=== PATIENT | female | born 1960 | race Caucasian/White ===

== ENCOUNTER → 2024-10-19 | Outpatient (CLI) | payer MEDICAID, SELFPAY ==
--- NOTE | 2024-10-19 12:30 | XR_ITS ---
Examination: Breast ultrasound, unilateral, left complete Date and time of exam: October 19, 2024 1304 hours INDICATIONS: Mammogram August 01, 2024 extensive scar formation upper outer left breast interval focal asymmetry 12:00 position left breast, family history, mother, breast cancer Technique: Real-time martinez scale ultrasonographic imaging performed left breast including all 4 quadrants as well as nipple retroareolar and axillary region. Findings: 2:00 scarring No interval suspicious mass IMPRESSION: BI-RADS Category 3: Probably benign findings Recommend 1 additional 6 month left breast sonogram follow-up to document stability of scarring in the 2:00 position left breast
--- NOTE | 2024-10-19 13:00 | XR_ITS ---
Examination: Diagnostic digital mammography, unilateral, left Computer aided detection 3-D breast Tomosynthesis, unilateral Date and time of exam: October 19, 2024 1316 hours INDICATIONS: Mammogram August 01, 2024 focal asymmetry 12:00 position left breast Technique: Nonmagnified MLO, CC views of the left breast have been obtained, reconstructed from 3-D Tomosynthesis images. R2 computer aided detection program utilized for evaluation of suspicious masses and/or abnormal calcifications. 3-D Tomosynthesis images obtained. Findings: Scattered areas of fibroglandular density Extensive scar reformation stable upper left breast No interval suspicious masses Impression: BI-RADS category 2: Benign findings Yearly follow-up mammography recommended
== END | disposition home or self-care (01) ==
LOC: CDIM 12:42
PROVIDERS: PCP Family Medicine; Referring Provider Family Medicine; Visit Provider Family Medicine
DX: R92.322 Mammographic fibroglandular density, left breast (principal); R92.8 Other abnormal and inconclusive findings on diagnostic imaging of breast; Z80.3 Family history of malignant neoplasm of breast
CPT/HCPCS: 76641; 77061; 77065; G0279

== ENCOUNTER 2024-11-01 13:32 | Outpatient (RCR) | payer MEDICAID, SELFPAY | END 2024-11-23 23:59 | disposition home or self-care (01) | LOC: SCTC 13:32 | PROVIDERS: PCP Family Medicine; Referring Provider Family Medicine; Visit Provider Nurse Practitioner Family | DX: C50.412 Malignant neoplasm of upper-outer quadrant of left female breast (principal); Z17.0 Estrogen receptor positive status [ER+]; Z17.21 Progesterone receptor positive status; Z17.32 Human epidermal growth factor receptor 2 negative status; Z90.12 Acquired absence of left breast and nipple; Z80.3 Family history of malignant neoplasm of breast; M81.0 Age-related osteoporosis without current pathological fracture; Z79.810 Long term (current) use of selective estrogen receptor modulators (SERMs); J44.9 Chronic obstructive pulmonary disease, unspecified; I10 Essential (primary) hypertension | CPT/HCPCS: 99212; G0463 ==

== ENCOUNTER 2025-07-02 19:44 | Emergency (ER) | payer MEDICAID, SELFPAY ==
[2025-07-02 19:45] VITALS: BMI 29.2
--- NOTE | 2025-07-02 20:51 | PD.EDLOWEX ---
Lower Extremity Injury RME/HPI General Chief Complaint: Extremity Injury, Lower Stated Complaint: MARLENY LEG SWELLING X3 DAYS Time Seen by Provider: 07/02/25 20:50 Arrival date/time: 07/02/25 19:44 RME / HPI RME / HPI Narrative: See MDM for Dr. Amaya's HPI documentation. Related Data Home Medications ?Medication ?Instructions ?Recorded ?Confirmed albuterol sulfate 90 mcg/actuation 2 puff inhalation Q6H PRN Wheezing 04/11/20 04/11/20 aerosol inhaler lisinopril 20 1 tab PO BID 04/11/20 04/11/20 mg-hydrochlorothiazide 12.5 mg tablet tamsulosin 0.4 mg capsule 0.4 mg PO QDAY 04/11/20 04/11/20 Previous Rx's ?Medication ?Instructions ?Recorded ibuprofen 800 mg tablet 800 mg PO Q8H PRN pain #30 tabs 12/22/23 tizanidine 4 mg capsule 4 mg PO Q8H PRN muscle spasticity 12/22/23 #30 caps Allergies Allergy/AdvReac Type Severity Reaction Status Date / Time codeine Allergy Mild Gastrointestinal Verified 12/22/23 15:23 Upset morphine AdvReac Mild VOMITING Verified 12/22/23 15:23 AND CHILLS Review of Systems Review of Systems Systems Reviewed: All systems reviewed, normal except as documented Past Medical History Past Medical History NEUROLOGIC: Negative Neurological Disorders, Seizures or Amyotrophic Lateral Sclerosis (ALS/Sendy Gehrig's) CARDIAC: Positive Cardiac Disorders and Hypertension (TAKES MED); Negative Congestive Heart Failure, Edema, Cellulitis or Varicose Veins RESPIRATORY: Positive Chronic Obstructive Pulmonary Disease (COPD), Asthma and Bronchitis; Negative Pneumonia, Tuberculosis or Sleep Apnea GASTROINTESTINAL: Positive Gastrointestinal Disorders, Ulcer, Hemorrhoids and Obesity; Negative Hepatitis GENITOURINARY: Positive Genitourinary Disorders, Renal Disease (YAN 2017), Kidney Stones (NO PROC) and Benign Prostatic Hyperplasia REPRODUCTIVE: Positive Breast Cancer (LEFT FOR THIS PROC) and Previous Pregnancies (X3) MUSCULOSKELETAL: Positive Musculoskeletal Disorders, Arthritis and Scoliosis (MILD) ENDOCRINE: Negative Endocrine Disorders, Diabetes Mellitus Type 1 or Diabetes Mellitus Type 2 HEMATOLOGIC: Negative Blood Disorders or Sickle Cell Disease PSYCHO/SOCIAL: Positive Depression (NO MEDS) and Anxiety (NO MED) OTHER HISTORY: Positive Chicken Pox, Cancer and Breast Cancer (LEFT FOR THIS PROC); Negative Hospitalization, Autoimmune Disease, Shingles, Falls, Blood Transfusions, Anesthesia Reactions, Chemotherapy, Radiation Therapy, MRSA, Measles or Mumps Family History FAMILY HISTORY: Positive Family Psychiatric Problems (SISTER (DEPRESSION,ANXIETY_), Family Cardiac Disorders (MOTHER,BROTHER (HTN)), Family Gastrointestinal Problems (BROTHER (ULCER)) and Family Surgery (SISTER); Negative Family Respiratory Disorders, Family Cancer or Family Anesthesia Reaction Surgical History SURGICAL: Positive Hysterectomy (MARLENY) and Tubal Ligation; Negative Cardiac Surgery or Pacemaker Social History SMOKING STATUS: Current some day smoker SUBSTANCE USE: does not use ED Exam Narrative Physical exam: See [facility] for Dr. Amaya's physical exam documentation. Course Quality Measures none Extremity Injury, Lower [facility] Narrative [facility] Narrative:: This section includes all my notes and documentations, including HPI, PE, and ED course. Stevie Amaya MD HPI: ROS: All negative except as documented in HPI. Physical Exam: General: Alert and oriented. No acute distress when remaining still. Eyes: Conjunctivae and lids clear. ENT: No nasal congestion. Neck: Supple. Heart: RRR. Lungs: No respiratory distress. Good air movement. No rhonchi, wheezing, rales. Abdomen: Soft and nontender. Normal bowel sounds. No distension. No rebound or guarding. Back: No CVA tenderness. Skin: Warm and dry. Neuro: Alert and oriented X 3. I reviewed EMS and detention notes. I reviewed all diagnostic test results. My interpretation of the EKG is My interpretation of the chest x-ray is My review of the CT report is Blood tests and urine tests At this point, diagnoses include Treatment here included Significant improvement Not yet done: I discussed the case with our hospitalist. About the presentation and exam and diagnostics and treatments here. And need of further care in the hospital. Will accept the patient. Not yet done: Based on my best medical judgment, made decision no further evaluation or treatment indicated at this time. Patient understands and agrees to the discharge instructions customized and printed, see below. Stevie Amaya MD Patient data External records reviewed:: [facility] previous records (Per chart review, patient was seen here on 12/22/23 for muscle spasm of lower legs.) Clinical information provided by:: patient Social determinants that could affect healthcare access:: none Patient has the following chronic illnesses:: COPD, HTN Discharge Plan Prescriptions/Referrals Prescriptions/Med Rec: No Action lisinopril-hydrochlorothiazide 20-12.5 mg Tablet 1 tab PO BID tamsulosin 0.4 mg Capsule 0.4 mg PO QDAY albuterol sulfate 90 mcg/actuation Hfa Aerosol Inhaler 2 puff INHALATION Q6H PRN (Reason: Wheezing) tizanidine 4 mg capsule 4 mg PO Q8H PRN (Reason: muscle spasticity) Qty: 30 0RF ibuprofen 800 mg tablet 800 mg PO Q8H PRN (Reason: pain) Qty: 30 0RF Patient/Caregiver Discharge Instructions Print Language: Occitan
[2025-07-02 21:01] VITALS: BP 180/89; PULSE 88; RESP 18; TEMP 36.8; O2SAT 91
--- NOTE | 2025-07-02 21:02 | EDNOTE_ITS ---
ED SOB =RME/HPI General Chief Complaint: Extremity Injury, Lower Stated Complaint: MARLENY LEG SWELLING X3 DAYS Time Seen by Provider: 07/02/25 20:50 Arrival date/time: 07/02/25 19:44 RME / HPI RME / HPI Narrative: See MDM for Dr. Amaya's HPI documentation. Related Data Home Medications ?Medication ?Instructions ?Recorded ?Confirmed albuterol sulfate 90 mcg/actuation 2 puff inhalation Q 6H PRN Wheezing 04/11/20 04/11/20 aerosol inhaler lisinopril 20 1 tab PO BID 04/11/20 mg-hydrochlorothiazide 12.5 mg tablet tamsulosin 0.4 mg capsule 0.4 mg PO QDAY 04/11/2003/24 Previous Rx's ?Medication ?Instructions ?Recorded ibuprofen 800 mg tablet 800 mg PO Q8H PRN pain #30 t abs 12/22/23 tizanidine 4 mg capsule 4 mg PO Q8H PRN muscle spast icity 12/22/23 #30 caps clonidine HCl 0.1 mg tablet 0.1 mg PO BID #60 tabs 08/17 oseltamivir 75 mg capsule (Tamiflu) 75 mg PO BID 5 day s #10 caps 07/03/25 prednisone 50 mg tablet 50 mg PO BID 3 days #6 tabs 07/03/25 Allergies Allergy/AdvReac Type Severity Reaction Status Date / Time codeine Allergy Mild Gastrointestinal Verified 12/22/23 15:23 Upset morphine AdvReac Mild VOMITING Verified 12/22/23 15:23 AND CHILLS Review of Systems Review of Systems Systems Reviewed: All systems reviewed, normal except as documented Past Medical History Past Medical History NEUROLOGIC: Negative Neurological Disorders, Seizures or Amyotrophic Lateral Sclerosis (ALS/Sendy Gehrig's) CARDIAC: Positive Cardiac Disorders and Hypertension (TAKES MED); Negative Congestive Heart Failure, Edema, Cellulitis or Varicose Veins RESPIRATORY: Positive Chronic Obstructive Pulmonary Disease (COPD), Asthma and Bronchitis; Negative Pneumonia, Tuberculosis or Sleep Apnea GASTROINTESTINAL: Positive Gastrointestinal Disorders, Ulcer, Hemorrhoids and Obesity; Negative Hepatitis GENITOURINARY: Positive Genitourinary Disorders, Renal Disease (YAN 2017), Kidney Stones (NO PROC) and Benign Prostatic Hyperplasia REPRODUCTIVE: Positive Breast Cancer (LEFT FOR THIS PROC) and Previous Pregnancies (X3) MUSCULOSKELETAL: Positive Musculoskeletal Disorders, Arthritis and Scoliosis (MILD) ENDOCRINE: Negative Endocrine Disorders, Diabetes Mellitus Type 1 or Diabetes Mellitus Type 2 HEMATOLOGIC: Negative Blood Disorders or Sickle Cell Disease PSYCHO/SOCIAL: Positive Depression (NO MEDS) and Anxiety (NO MED) OTHER HISTORY: Positive Chicken Pox, Cancer and Breast Cancer (LEFT FOR THIS PROC); Negative Hospitalization, Autoimmune Disease, Shingles, Falls, Blood Transfusions, Anesthesia Reactions, Chemotherapy, Radiation Therapy, MRSA, Measles or Mumps Family History FAMILY HISTORY: Positive Family Psychiatric Problems (SISTER (DEPRESSION,ANXIETY_), Family Cardiac Disorders (MOTHER,BROTHER (HTN)), Family Gastrointestinal Problems (BROTHER (ULCER)) and Family Surgery (SISTER); Negative Family Respiratory Disorders, Family Cancer or Family Anesthesia Reaction Surgical History SURGICAL: Positive Hysterectomy (MARLENY) and Tubal Ligation; Negative Cardiac Surgery or Pacemaker Social History SMOKING STATUS: Heavy (> 1 pack/day) SUBSTANCE USE: does not use ED Exam Narrative Physical exam: See MDM for Dr. Amaya's physical exam documentation. Course Course Course Narrative: CXR is ordered for determining the etiology of shortness of breath. Quality Measures none Orders Category Date Time Status Bedside COVID-19 Antigen Test NOW Care 07/02/25 21:09 Completed Bedside Influenza A&B Antigen Test NOW Care 07/02/25 21:09 Completed EKG (ED ONLY) *Do not use* NOW Care 07/02/25 21:10 Completed Saline [Insert IV] NOW Care 07/02/25 21:09 Completed Straight [In and Out Catheter] X1 Care 07/02/25 21:09 Completed EKG (ED Only) Stat Exams 07/02/25 21:10 Draft US venous doppler LE BI Stat Exams 07/03/25 00:05 Taken XR chest 1V portable Stat Exams 07/02/25 21:10 Completed ABG [Arterial Blood Gas] Stat Lab 07/02/25 21:36 Completed BNP [B-Type Natriuretic Peptide] Stat Lab 07/02/25 21:54 Completed Bilirubin,Direct Stat Lab 07/02/25 21:54 Completed CBC Stat Lab 07/02/25 21:54 Completed CMP [Comprehensive Metabolic Panel] Stat Lab 07/02/25 21:54 Completed D-Dimer Stat Lab 07/02/25 21:54 Completed Magnesium Stat Lab 07/02/25 21:54 Completed TSH [Thyroid Stimulating Hormone] Stat Lab 07/02/25 21:54 Completed Troponin I Stat Lab 07/02/25 21:54 Completed UA, C/S IF [Urinalysis, C/S if Indicated] Stat Lab 07/03/25 00:19 Completed Albuterol/Ipratr Rt Colene [Duoneb Rt Coleen] Med 07/02/25 21:09 Discontinued 6 ml INH X1 ONE DiphenhydrAMINE INJ [Benadryl Inj] Med 07/02/25 21:09 Discontinued 50 mg IVP X1 STA Famotidine Inj [Pepcid Inj] Med 07/02/25 21:09 Discontinued 20 mg IVP X1 ONE KCL 10% Liq UDC 15 ML Med 07/02/25 22:50 Discontinued 40 meq PO X1 ONE Levalbuterol Rt [Xopenex Rt Coleen] Med 07/02/25 21:09 Discontinued 2.5 mg INH X1 ONE Magnesium Sulfate 2 GM Ivpb [Magnesium Sulfate Ivpb] Med 07/02/25 21:09 Discontinued 2 gm in 50 ml IV X1 MethylPREDNISolone.* [SoluMEDROL Inj] Med 07/02/25 21:09 Discontinued 250 mg IVP X1 ONE Metoprolol Tartrate [Lopressor] Med 07/02/25 21:58 Discontinued 25 mg PO X1 ONE Oseltamivir [Tamiflu] Med 07/02/25 22:20 Discontinued 75 mg PO X1 ONE Sodium Chloride Rt Coleen 0.9% [NS Rt Coleen 0.9%] Med 07/02/25 21:09 Discontinued 6 ml INH PRN PRN cloNIDine HCL [Catapres] Med 07/02/25 21:58 Discontinued 0.3 mg PO X1 ONE Vital Signs Vital signs: Vital Signs Temperature 98.3 F 07/02/25 21:01 Pulse Rate 88 07/02/25 21:01 Respiratory Rate 18 07/02/25 21:01 Blood Pressure 180/89 H 07/02/25 21:01 Pulse Oximetry (%) 91 L 07/02/25 21:01 Oxygen Delivery Method Room Air 07/02/25 21:01 Shortness of Breath / Dyspnea MDM Narrative MDM Narrative:: This section includes all my notes and documentations, including HPI, PE, and ED course. Stevie Amaya MD HPI: 64yo female here with several days of worsening cough, productive cough, purulent sputum, and dyspnea. With subjective fever and chills and aches and malaise. And swelling of the feet and ankles. No other complaints. ROS: All negative except as documented in HPI. Physical Exam: General: Alert and oriented. In respiratory distress. High BP noted. Eyes: Conjunctivae and lids clear. PERRL. EOMI. ENT: No nasal congestion. Pharynx normal. TM normal bilaterally. Neck: Supple. No carotid bruit. No JVD. Heart: RRR. Lungs: In respiratory distress. Minimal air movement noted with scattered wheezing. Abdomen: Soft and nontender. Back: No CVA tenderness. Skin: Warm and dry. Legs: Moderate edema of the lower legs noted. Neuro: Alert and oriented X 3. Cranial nerves II to XII grossly normal. No peripheral motor deficits. I reviewed all diagnostic test results. My interpretation of the EKG is sinus rhythm with nonspecific ST-T changes. My interpretation of the chest x-ray is increased vascular congestion. My review of the bilateral lower extremity US report is no DVT. Blood tests remarkable for K 3.3. ABG showed pH 7.45, pCO2 51, and pHCO3 35. UA unremarkable. Influenza positive. COVID negative. At this point, diagnoses include: Influenza Hypertension Hypokalemia Leg swelling Treatment here included: Duoneb Clonidine Benadryl Pepcid Magnesium Xopenex Solumedrol Metoprolol Tamiflu Oral KCl Significant improvement noted. Recommended outpatient management. Based on my best medical judgment, made decision no further evaluation or treatment indicated at this time. Patient understands and agrees to the dischar ge instructions customized and printed, see below. Discharge instructions from Dr. Amaya: --After evaluation, your diagnoses include influenza and high BP and low potassium level and leg swelling. --No physical exertion for 3 days to help rest the lungs. ?No smoking or exposure to smoking or pets or dust or humidity. -- Tamiflu to kill the germs causing the influenza. --Prednisone to help decrease the swelling in the airways. -- Neb treatment every 4-6 hours for 3 days to help keep the airways open. Then as directed by your private doctors. --Use oxygen (2 L) 24 hours/day for 3 full days then as directed by your private doctors. --For your high BP: Take Clonidine 0.1 mg pill(s) every 12 hours as needed based on SBP (higher number of BP). SBP > 140, take one pill. SBP > 160, take two pills. SBP > 180, take three pills. SBP > 200, take four pills. --This is extremely important for your leg swelling, this is extremely important: When resting or sitting or sleeping, elevate your feet/ankles above your waist level is much as possible. --For your low potassium level, eat a banana every single day. --See a private doctor on 07/05/2025 for recheck and further care. Ask for help until you are completely better. Ask to review all test results and official radiology reports, to make sure you receive all necessary follow-ups and monitoring. --Seek immediate medical care with worsening or with any concerns. Stevie Amaya MD Patient data External records reviewed:: [facility] previous records (Per chart review, patient was seen here on 12/22/23 for muscle spasm of both lower legs.) Clinical information provided by:: patient Social determinants that could affect healthcare access:: none Patient has the following chronic illnesses:: COPD, HTN How is presenting disease/condition affected by chronic disease/condition?: exacerbated by Evaluation data The following diagnostics were reviewed and interpreted by me:: lab results, radiology exam(s) and EKG tracing(s) (My interpretation of the EKG is: Sinus rhythm (101 bpm) with nonspecific ST-T changes. Stevie Amaya MD) Lab and/or radiology exams considered but not ordered:: none Interpretation Summary: I reviewed all diagnostic test results. My interpretation of the EKG is sinus rhythm with nonspecific ST-T changes. My interpretation of the chest x-ray is increased vascular congestion. My review of the bilateral lower extremity US report is no DVT. Blood tests remarkable for K 3.3. ABG showed pH 7.45, pCO2 51, and pHCO3 35. UA unremarkable. Influenza positive. COVID negative. Medications / Prescriptions Medications or Prescriptions considered but not ordered:: none Medication administrations:: Medication Administration History Discontinued Medications Albuterol/Ipratropium (Albuterol/Ipratropium (Duoneb) Rt Coleen 3 Ml Nebu) 6 ml INH X1 ONE Stop: 07/02/25 21:10 Last Admin: 07/02/25 21:36 Dose: 6 ml Documented By: SD Clonidine (Clonidine Hcl 0.1 Mg Tablet) 0.3 mg PO X1 ONE Stop: 07/02/25 21:59 Last Admin: 07/02/25 22:08 Dose: 0.3 mg Documented By: MARÍA Diphenhydramine HCl (Diphenhydramine Inj 50 Mg/Ml Vial) 50 mg IVP X1 STA Stop: 07/02/25 21:10 Last Admin: 07/02/25 21:50 Dose: 50 mg Documented By: MARÍA Famotidine (Famotidine Inj 10 Mg/Ml Vial 2 Ml) 20 mg IVP X1 ONE Stop: 07/02/25 21:10 Last Admin: 07/02/25 21:49 Dose: 20 mg Documented By: MARÍA Magnesium Sulfate (Magnesium Sulfate Ivpb) 2 gm in 50 mls @ 25 mls/hr IV X1 ONE Stop: 07/02/25 23:08 Last Infusion: 07/02/25 23:53 Dose: Infused Documented By: Admin: 07/02/25 21:52 Dose: 25 mls/hr Documented By: MARÍA Levalbuterol HCl (Levalbuterol Rt 1.25 Mg/0.5 Ml Nebu) 2.5 mg INH X1 ONE Stop: 07/02/25 21:10 Last Admin: 07/02/25 21:37 Dose: 2.5 mg Documented By: WING Methylprednisolone Sodium Succinate (Methylprednisolone Sod Succ 62.5 Mg/Ml 2ml Vial) 250 mg IVP X1 ONE Stop: 07/02/25 21:10 Last Admin: 07/02/25 21:48 Dose: 250 mg Documented By: MARÍA Metoprolol Tartrate (Metoprolol Tartrate 25 Mg Tablet) 25 mg PO X1 ONE Stop: 07/02/25 21:59 Last Admin: 07/02/25 22:08 Dose: 25 mg Documented By: MARÍA Oseltamivir Phosphate (Oseltamivir 75 Mg Capsule) 75 mg PO X1 ONE Stop: 07/02/25 22:21 Last Admin: 07/02/25 22:25 Dose: 75 mg Documented By: MARÍA Potassium Chloride (Potassium Chloride 10% 20 Meq/15 Ml Udc) 40 meq PO X1 ONE Stop: 07/02/25 22:51 Last Admin: 07/02/25 23:23 Dose: 40 meq Documented By: WO Sodium Chloride (Sodium Chloride Rt Coleen 0.9% 3 Ml Nebu) 6 ml INH PRN PRN PRN Reason: SOLN Stop: 08/01/25 21:08 Last Admin: 07/02/25 21:36 Dose: 6 ml Documented By: WING Duoneb, Clonidine, Benadryl, Pepcid, Magnesium, Xopenex, Solumedrol, Metoprolol, Tamiflu, Oral KCl Consultations Consultation(s) initiated? (list below): No Diagnosis Shortness of Breath Differential Diagnosis: acute exacerbation of chronic obstructive airways disease, congestive heart failure, community acquired pne umonia and other (COVID, Influenza, URI) Most likely diagnosis given after review of the tests above:: Influenza, Hypertension, Hypokalemia, Leg swelling Admission Indicated Admission indicated?: not indicated Explain why admission is indicated or not indicated:: With significant improvement and no condition needing emergent intervention, there was no indication for admission. Admission Request Was there a request for admission?: No Disposition Plan Disposition Plan: Discharge Discharge Attestation Discharge Attestation: The patient and all family members were given an opportunity to ask questions and understood the discharge instructions. Discharge instructions specifically effects, indications for sooner follow up or return to the emergency department, and the expected course of current diagnosis. Patient condition: Stable Discharge Plan Plan Patient Disposition: HOME (Self Care) Prescriptions/Referrals Prescriptions/Med Rec: New clonidine HCl 0.1 mg tablet 0.1 mg PO BID Qty: 60 0RF oseltamivir [Tamiflu] 75 mg capsule 75 mg PO BID 5 Days Qty: 10 0RF prednisone 50 mg tablet 50 mg PO BID 3 Days Qty: 6 0RF No Action lisinopril-hydrochlorothiazide 20-12.5 mg Tablet 1 tab PO BID tamsulosin 0.4 mg Capsule 0.4 mg PO QDAY albuterol sulfate 90 mcg/actuation Hfa Aerosol Inhaler 2 puff INHALATION Q6H PRN (Reason: Wheezing) tizanidine 4 mg capsule 4 mg PO Q8H PRN (Reason: muscle spasticity) Qty: 30 0RF ibuprofen 800 mg tablet 800 mg PO Q8H PRN (Reason: pain) Qty: 30 0RF Referrals: Larry Quinonez MD [Primary Care Provider, Family Practice] - In 1 week Problem List Clinical Impression: Influenza, Hypertension, Hypokalemia, Leg swelling Patient/Caregiver Discharge Instructions Discharge Activity: activity as tolerated Education Materials: ED Leg Swelling in Both Legs, ED Influenza (Adult), ED Hypertension, Established, ED Hypokalemia Additional Instructions: Discharge instructions from Dr. Amaya: --After evaluation, your diagnoses include influenza and high BP and low potassium level and leg swelling. --No physical exertion for 3 days to help rest the lungs. ?No smoking or exposure to smoking or pets or dust or humidity. -- Tamiflu to kill the germs causing the influenza. --Prednisone to help decrease the swelling in the airways. -- Neb treatment every 4-6 hours for 3 days to help keep the airways open. Then as directed by your private doctors. --Use oxygen (2 L) 24 hours/day for 3 full days then as directed by your private doctors. --For your high BP: Take Clonidine 0.1 mg pill(s) every 12 hours as needed based on SBP (higher number of BP). SBP > 140, take one pill. SBP > 160, take two pills. SBP > 180, take three pills. SBP > 200, take four pills. --This is extremely important for your leg swelling, this is extremely important: When resting or sitting or sleeping, elevate your feet/ankles above your waist level is much as possible. --For your low potassium level, eat a banana every single day. --See a private doctor on 07/05/2025 for recheck and further care. Ask for help until you are completely better. Ask to review all test results and official radiology reports, to make sure you receive all necessary follow-ups and monitoring. --Seek immediate medical care with worsening or with any concerns. Print Language: Czech Stand Alone Forms: Lizette Award Info., Patient Portal Info Letter
--- NOTE | 2025-07-02 21:10 | EKG_ITS ---
[facility] Test Date: 2025-07-02 Pat Name: JACQUELINE ONTIVEROS Department: Room: - Gender: Female [employer]: : [id number] Requested By: Stevie Morgan Order Number: [id number] Reading MD: Stevie Morgan Measurements Intervals [place] Rate: 101 P: 86 NH: 158 QRS: 82 QRSD: 79 T: 77 QT: 286 QTc: 372 Interpretive Statements SINUS TACHYCARDIA POSSIBLE LEFT ATRIAL ENLARGEMENT [-0.1mV P-WAVE IN V1/V2] NONSPECIFIC ST & T-WAVE ABNORMALITY ABNORMAL RHYTHM ECG Compared to ECG 04/10/2020 09:45:17 T-wave abnormality now present Sinus rhythm no longer present /store/S0/[id number].pdf
--- NOTE | 2025-07-02 21:10 | XR_ITS ---
Examination: AP chest single view Technique one AP portable upright chest single view Date and time: July 02, 2025, 1002 hrs., Comparison 07/02/2021 Indications: Bilateral leg swelling shortness of breath 3 days. Findings: Mild CHF Moderate enlargement cardiac contour Prominent vascular congestion with early septal edema Prominent osteopenia Impression: Mild CHF
[2025-07-02] MEDS: ALBUTEROL/IPRATROPIUM (Duoneb) RT SOL 3 ML NEBU 6 ML INH (21:36)
[2025-07-02] MEDS: SODIUM CHLORIDE RT SOL 0.9% 3 ML NEBU 6 ML INH (21:36)
[2025-07-02] MEDS: LEVALBUTEROL RT 1.25 MG/0.5 ML NEBU 2.5 MG INH (21:37)
[2025-07-02 21:43] LABS: Base Excess 9 (-3-3); HCO3 35 mEq/L (20-26); Inspired Oxygen, FIO2 21 %; O2 Saturation 96 % (91-98); PCO2 51 mmHg (32.0-48.0); PO2 73 mmHg (83-108); pH, Arterial 7.45 (7.35-7.45)
[2025-07-02 21:44] LABS: Allen Test Performed/OK; Puncture Site Right Radial
[2025-07-02 21:46] VITALS: PULSE 98; RESP 20; O2SAT 100
[2025-07-02] MEDS: MethylPREDNISolone SOD SUCC 62.5 MG/ML 2ML VIAL 250 MG IVP (21:48)
[2025-07-02] MEDS: FAMOTIDINE INJ 10 MG/ML VIAL 2 ML 20 MG IVP (21:49)
[2025-07-02] MEDS: Magnesium Sulfate 2 GM Ivpb 2 GM/50 ML BAG IV (21:52)
[2025-07-02 22:08] VITALS: BP 170/127; PULSE 95; PULSE 96
[2025-07-02] MEDS: METOPROLOL TARTRATE 25 MG TABLET PO (22:08)
[2025-07-02 22:18] LABS: Basophils # (Auto) 0.0 Thou/mm3 (0.0-0.2); Basophils % (Auto) 0 % (0-2.5); Eosinophils # (Auto) 0.2 Thou/mm3 (0.0-0.5); Eosinophils % (Auto) 2 % (0-10); Hematocrit 51.7 % (36.0-46.0); Hemoglobin 16.7 g/dL (12.0-16.0); Immature Granulocytes Auto 0.02 Thou/mm3 (0.00-0.00); Lymphocytes # (Auto) 2.0 Thou/mm3 (1.0-4.8); Lymphocytes % (Auto) 19 % (10-50); Mean Corpuscular HGB Conc 32.3 g/dl (31.0-37.0); Mean Corpuscular Hemoglobin 30.0 pg (25.0-35.0); Mean Corpuscular Volume 93 fL (80-100); Monocytes # (Auto) 0.7 Thou/mm3 (0.0-0.8); Monocytes % (Auto) 7 % (0-12); Neutrophils # (Auto) 7.5 Thou/mm3 (1.8-7.7); Neutrophils % (Auto) 72 % (37-80); Nucleated Red Blood Cell # 0.00 Thou/mm3 (0.00-0.00); Nucleated Red Blood Cell % 0 /100 WBC (0); Platelet Count 236 Thou/mm3 (140-440); RDW Standard Deviation 43.8 fL (36.4-46.3); Red Blood Count 5.56 Miln/mm3 (4.00-5.20); White Blood Count 10.4 Thou/mm3 (3.6-11.0)
[2025-07-02] MEDS: OSELTAMIVIR 75 MG CAPSULE PO (22:25)
[2025-07-02 22:42] LABS: Anion Gap 9 (7-16); Blood Urea Nitrogen 5 mg/dL (9-23); Carbon Dioxide 36.3 mMol/L (20.0-31.0); Chloride 95 mMol/L (98-107); Creatinine (Component) 0.9 mg/dL (0.6-1.3); Potassium 3.3 mMol/L (3.4-5.1); Sodium 140 mMol/L (136-145)
[2025-07-02 22:43] LABS: Alanine Aminotransferase 12 U/L (10-49); Albumin, Serum 4.7 gm/dL (3.4-4.8); Albumin/Globulin Ratio 1.7 (1.2-2.2); Alkaline Phosphatase 89 U/L (46-116); Aspartate Amino Transferase 17 U/L (0-34); B-Type Natriuretic Peptide 20 pg/mL (0-100); BUN/Creatinine Ratio 6 Ratio (12-20); Bilirubin,Direct 0.1 mg/dL (0.0-0.3); Bilirubin,Total 0.5 mg/dL (0.3-1.2); Calcium 10.3 mg/dL (8.3-10.6); Calcium (Corrected) 10.3 mg/dL (8.5-10.1); Estimated Creatinine Clearance 59.7 mL/min (>60); Globulin 2.8 gm/dL (2.3-3.5); Glucose 106 mg/dL (74-106); Magnesium 2.2 mg/dL (1.6-2.6); Osmolality,Calculated 276 (275-295); Thyroid Stimulating Hormone 1.33 uIU/mL (0.55-4.78); Total Protein 7.5 gm/dL (5.7-8.2); Troponin I < 0.020 ng/mL (0.0-0.045); eGFR > 60 See Note
[2025-07-02 22:47] LABS: D-Dimer < 250 ng/mL (<600)
[2025-07-02 23:23] VITALS: BP 149/78; PULSE 84; RESP 17; TEMP 36.8; O2SAT 92
[2025-07-02] MEDS: POTASSIUM CHLORIDE 10% 20 MEQ/15 ML UDC 40 MEQ PO (23:23)
--- NOTE | 2025-07-03 00:05 | XR_ITS ---
Examination: Venous duplex lower extremity sonogram, bilateral. Date and time of exam: July 03, 2025, 0037 hrs. Indications: Bilateral leg and foot swelling beginning 3 days ago. Technique: Multiple sonographic images of the deep venous system have been obtained. B-mode/2-D grayscale imaging of vascular structures and Doppler spectral analysis (waveforms) and color performed Both legs are examined. Findings: Deep venous systems do not demonstrate abnormal echogenicity. All visualized deep veins exhibit compressibility. All visualized deep veins exhibit augmentation. Impression: Negative for deep vein thrombosis
[2025-07-03 00:22] VITALS: BP 132/76; PULSE 75; RESP 26; O2SAT 93
[2025-07-03 00:24] LABS: Collection Type, Urine Clean Catch; Squamous Epithelial Cell,Urine 0 /hpf (0-5)
[2025-07-03 00:28] LABS: Bilirubin,Urine Negative (Negative); Blood,Urine Negative (Negative); Clarity,Urine Clear (Clear/Hazy); Color,Urine Colorless (Lt Yel-Yel); Culture Indicated,Urine Not Indicated; Glucose, Urine Negative (Negative); Ketones,Urine Negative (Negative); Leukocyte Esterase,Urine Negative (Negative); Nitrite,Urine Negative (Negative); PH,Urine 6.0 (5.0-7.0); Protein,Urine Negative (Neg - Trace); RBC,Urine < 1 /hpf (0-3); Specific Gravity,Urine 1.006 (1.001-1.035); Urobilinogen,Urine Negative mg/dL (0.0-1.0); WBC,Urine 1 /hpf (0-5)
--- NOTE | 2025-07-03 01:36 | PRELIM_ITS ---
Bilateral lower extremity venous Doppler ultrasound. July 03, 2025 at 0037 hours Clinical history: Edema. Findings: Carranza scale, color flow and spectral Doppler evaluation of the lower extremity deep veins was performed. Right: The common femoral, superficial femoral and popliteal veins are patent and compressible. Normal respiratory variation is noted. The great saphenous vein is patent at the level of the saphenofemoral junction. The posterior tibial and peroneal veins are patent and compressible. Left: The common femoral, superficial femoral and popliteal veins are patent and compressible. Normal respiratory variation is noted. The great saphenous vein is patent at the level of the saphenofemoral junction. The posterior tibial and peroneal veins are patent and compressible. Impression: No evidence of deep venous thrombosis in both lower extremities. Report Electronically Signed By: Adarsh Cope 07/03/2025 1:35:20 AM [EST]
== END 2025-07-03 01:38 | disposition home or self-care (01) ==
PROVIDERS: Emergency Provider Emergency Medicine; PCP Family Medicine
DX: J11.1 Influenza due to unidentified influenza virus with other respiratory manifestations (principal); I10 Essential (primary) hypertension; E87.6 Hypokalemia; M79.89 Other specified soft tissue disorders
CPT/HCPCS: 36415; 36600; 71045; 80053; 81001; 82248; 82803; 83735; 83880; 84443; 84484; 85025; 85379; 87400; 87811; 93005; 93970; 94640; 99284; A9270; J1200; J2919; J3475; J3490

== ENCOUNTER → 2025-07-22 | Outpatient (CLI) | payer MEDICAID, SELFPAY ==
[2025-07-22 16:20] LABS: Basophils # (Auto) 0.0 Thou/mm3 (0.0-0.2); Basophils % (Auto) 0 % (0-2.5); Eosinophils # (Auto) 0.1 Thou/mm3 (0.0-0.5); Eosinophils % (Auto) 1 % (0-10); Hematocrit 47.1 % (36.0-46.0); Hemoglobin 15.1 g/dL (12.0-16.0); Immature Granulocytes Auto 0.03 Thou/mm3 (0.00-0.00); Lymphocytes # (Auto) 1.7 Thou/mm3 (1.0-4.8); Lymphocytes % (Auto) 22 % (10-50); Mean Corpuscular HGB Conc 32.1 g/dl (31.0-37.0); Mean Corpuscular Hemoglobin 30.3 pg (25.0-35.0); Mean Corpuscular Volume 94 fL (80-100); Monocytes # (Auto) 0.6 Thou/mm3 (0.0-0.8); Monocytes % (Auto) 7 % (0-12); Neutrophils # (Auto) 5.4 Thou/mm3 (1.8-7.7); Neutrophils % (Auto) 69 % (37-80); Nucleated Red Blood Cell # 0.00 Thou/mm3 (0.00-0.00); Nucleated Red Blood Cell % 0 /100 WBC (0); Platelet Count 189 Thou/mm3 (140-440); RDW Standard Deviation 43.9 fL (36.4-46.3); Red Blood Count 4.99 Miln/mm3 (4.00-5.20); White Blood Count 7.8 Thou/mm3 (3.6-11.0)
[2025-07-22 16:32] LABS: Alanine Aminotransferase 12 U/L (10-49); Albumin, Serum 4.1 gm/dL (3.4-4.8); Albumin/Globulin Ratio 1.8 (1.2-2.2); Alkaline Phosphatase 66 U/L (46-116); Anion Gap 9 (7-16); Aspartate Amino Transferase 15 U/L (0-34); BUN/Creatinine Ratio 10 Ratio (12-20); Bilirubin,Total 0.4 mg/dL (0.3-1.2); Blood Urea Nitrogen 8 mg/dL (9-23); Calcium 9.7 mg/dL (8.3-10.6); Calcium (Corrected) 9.7 mg/dL (8.5-10.1); Carbon Dioxide 32.4 mMol/L (20.0-31.0); Chloride 96 mMol/L (98-107); Creatinine (Component) 0.8 mg/dL (0.6-1.3); Globulin 2.3 gm/dL (2.3-3.5); Glucose 141 mg/dL (74-106); Osmolality,Calculated 274 (275-295); Potassium 3.3 mMol/L (3.4-5.1); Sodium 137 mMol/L (136-145); Total Protein 6.4 gm/dL (5.7-8.2); eGFR > 60 See Note
[2025-07-22 16:52] LABS: CA 15-3 6.4 U/mL (<32.4); Carcinoembryonic Antigen 0.8 ng/mL (0.0-5.0)
== END | disposition home or self-care (01) ==
LOC: SCTO 15:12
PROVIDERS: PCP Family Medicine; Referring Provider Nurse Practitioner Family; Visit Provider Nurse Practitioner Family
DX: C50.412 Malignant neoplasm of upper-outer quadrant of left female breast (principal)
CPT/HCPCS: 36415; 80053; 82378; 85025; 86300

== ENCOUNTER → 2025-10-07 | Outpatient (CLI) | payer MEDICAID, SELFPAY ==
--- NOTE | 2025-10-07 13:30 | XR_ITS ---
Examination: Screening digital mammography, bilateral Computer aided detection 3-D breast Tomosynthesis, bilateral Date and time of exam: October 07, 2025, 1344 hours, compared to mammograms dating to May 28, 2021 Indication: Screening Technique: Nonmagnified MLO, CC views of the breasts to been obtained, reconstructed from 3-D Tomosynthesis images. R2 computer aided detection program utilized for evaluation of suspicious masses and/or abnormal calcifications. 3-D Tomosynthesis images obtained. Findings: Scattered areas of fibroglandular density. Again noted extensive scar formation left breast stable compared to prior studies with skin thickening No interval suspicious masses Impression: BI-RADS category II: Benign Findings. Recommend 1 year follow-up mammogram. Recommend repeat left breast sonography to confirm stable scarring left breast in the 2 o'clock position compared to the October 19, 2024 exam
== END | disposition home or self-care (01) ==
PROVIDERS: Referring Provider Nurse Practitioner Family; Visit Provider Nurse Practitioner Family
DX: Z12.31 Encounter for screening mammogram for malignant neoplasm of breast (principal); R92.323 Mammographic fibroglandular density, bilateral breasts; R92.8 Other abnormal and inconclusive findings on diagnostic imaging of breast; C50.412 Malignant neoplasm of upper-outer quadrant of left female breast
CPT/HCPCS: 77063; 77067